=== PATIENT | female | born 1930 | race Caucasian/White ===

== ENCOUNTER 2018-04-01 19:40 | Emergency (ER) | payer MEDICARE, BC ==
[~2018-04-01] VITALS: Ht 162.6 cm; Wt 63.6 kg
[2018-04-01 19:56] VITALS: PULSE 90; TEMP 98.2
[2018-04-01 20:22] LABS: COLLECTION METHOD CLEAN CATCH
[2018-04-01 20:35] LABS: PH 6 (5-8); SQUAMOUS EPITHELIAL 0-2 /hpf; URINE APPEARANCE Cloudy; URINE BACTERIA Rare /hpf; URINE BILIRUBIN Negative (NEGATIVE); URINE BLOOD 2+ (NEGATIVE); URINE COLOR Yellow; URINE GLUCOSE Negative (NEGATIVE); URINE KETONE Negative (NEGATIVE); URINE LEUKOCYTE ESTERASE 3+ (NEGATIVE); URINE NITRATE Negative (NEGATIVE); URINE PROTEIN(semi-quant) Negative (NEGATIVE); URINE UROBILINOGEN Negative (NEGATIVE)
[2018-04-01] MEDS ORDERED: ZOCOR 20MG20 MG PO (20:48)
[2018-04-01] MEDS ORDERED: FLONASEALLERGY NS (20:48)
[2018-04-01] MEDS ORDERED: ASPIRIN 81M81 MG/TA2 PO (20:48)
[2018-04-01] MEDS ORDERED: OMNICEF 300MG300 MG PO (20:49)
[2018-04-01] MEDS ORDERED: METHOTREXA2.5 MG/TAB PO (20:49)
[2018-04-01] MEDS ORDERED: VITAMIN D 50,1.25 MG PO (20:51)
[2018-04-01] MEDS ORDERED: FOLIC ACID 11 MG/TA1 PO (20:51)
[2018-04-01] MEDS ORDERED: ESTRACE0.1 MG/GM VG (20:52)
[2018-04-01] MEDS ORDERED: HYZAAR 50-12.1 UDTAB PO (20:52)
[2018-04-01 20:54] VITALS: BP 142/64
== END 2018-04-01 20:59 | disposition home or self-care (01) ==
LOC: COL.ER 19:40
PROVIDERS: Physician Assistant
DX: K29.70 Gastritis, unspecified, without bleeding (principal); Z79.82 Long term (current) use of aspirin; Z79.51 Long term (current) use of inhaled steroids